=== PATIENT | male | born 1985 | race Caucasian/White ===

== ENCOUNTER → 2019-02-11 12:00 | Outpatient (CLI) | payer OTHER, SELFPAY ==
[2019-02-11 13:13] LABS: ALB/GLOB Ratio 0.8 RATIO (0.9-2.4); AST(SGOT) 25 U/L (15-37); Alanine Aminotransfer ALT/SGPT 31 U/L (16-61); Albumin, Serum 3.6 g/dL (3.2-5.0); Alkaline Phosphatase 118 U/L (45-117); Anion Gap 5 (5-15); BUN 10 mg/dL (7-18); Calcium,Total 9.2 mg/dL (8.5-10.1); Chloride 108 mmol/L (98-107); Cholesterol 168 mg/dL (200); Creatinine, Serum 0.83 mg/dL (0.70-1.30); EST Glomerular Filtration Rate 113 mL/min (>60); Est Glom Filt Rate - Afr Amer 136 mL/min (>60); Follicle Stimulating Hormone 28.4 mIU/mL; Globulin 4.3 g/dL (2.2-4.2); Glucose 82 mg/dL (74-106); High Density Lipoprotein 47 mg/dL; Luteinizing Hormone 12.7 mIU/mL; Potassium 4.5 mmol/L (3.5-5.1); Prolactin 4.4 ng/mL; Protein, Total 7.9 g/dL (6.4-8.2); Sodium Level 139 mmol/L (136-145); Thyroid Stim Hormone (TSH) 2.43 uIU/mL (0.358-3.74); Triglycerides 93 mg/dL; Very Low Density Lipoprotein 19 mg/dL (5-40)
[2019-02-14 09:57] LABS: Testosterone, Free 0.67 ng/dL (5.00-21.00)
[2019-02-14 16:16] LABS: Testosterone, % Free 2.17 % (1.50-4.20); Testosterone, Total 31 ng/dL (264-916)
== END ==
PROVIDERS: Family Provider Family Medicine; PCP Family Medicine; Referring Provider Family Medicine; Visit Provider Family Medicine
DX: N62 Hypertrophy of breast (principal); E66.01 Morbid (severe) obesity due to excess calories
CPT/HCPCS: 36415; 80053; 80061; 83001; 83002; 84146; 84402; 84403; 84443